=== PATIENT | female | born 1995 | race Caucasian/White ===

== ENCOUNTER 2017-07-10 09:03 | Emergency (ER) | payer OTHER ==
[2017-07-10 09:45] LABS: URINE BLOOD (Dip) POC Negative (NEGATIVE); URINE GLUCOSE (Dip) POC Negative (NEGATIVE); URINE KETONES (Dip) POC Negative (NEGATIVE); URINE LEUKOCYTE EST (Dip) POC Negative (NEGATIVE); URINE NITRITE (Dip) POC Negative (NEGATIVE); URINE TOTAL PROTEIN POC Negative (NEGATIVE)
[2017-07-10] MEDS: KETOROLAC 30 MG INJ IM (10:08)
== END 2017-07-10 12:00 | disposition home or self-care (01) ==
LOC: FTE 09:03
DX: R10.32 Left lower quadrant pain (principal); R10.31 Right lower quadrant pain; M79.1 Myalgia; R10.2 Pelvic and perineal pain
CPT/HCPCS: 72100; 76856; 81003; 96372; 99285-25

== ENCOUNTER 2017-09-15 09:51 | Emergency (ER) | payer OTHER | END 2017-09-15 10:49 | disposition home or self-care (01) | LOC: E/R 09:51 | DX: J02.0 Streptococcal pharyngitis (principal) | CPT/HCPCS: 99283; Z7502 ==